=== PATIENT | female | born 1995 | race Two or more races ===

== ENCOUNTER 2024-03-25 17:09 | Emergency (ER) | payer BC ==
[~2024-03-25] VITALS: Ht 165.1 cm; Wt 68.0 kg
[2024-03-25 20:23] VITALS: BP 108/66; TEMP 97.4; O2SAT 100
== END 2024-03-25 20:24 | disposition home or self-care (01) ==
LOC: ER 17:20
DX: S06.0X0A Concussion without loss of consciousness, initial encounter (principal); H53.8 Other visual disturbances; V43.52XA Car driver injured in collision with other type car in traffic accident, initial encounter; Y93.89 Activity, other specified; Y92.488 Other paved roadways as the place of occurrence of the external cause; Y99.8 Other external cause status; R51.9 Headache, unspecified
CPT/HCPCS: 70450-TC